=== PATIENT | male | born 1950 | race Caucasian/White ===

== ENCOUNTER 2018-07-18 01:57 | Inpatient (IN) | payer MEDICARE, OTHER ==
[~2018-07-18] VITALS: Ht 172.7 cm; Wt 75.3 kg
[2018-07-18] MEDS ORDERED: HALOPERIDOL LACTATE INJ 5 MG/ML VIAL IM ONE ×2 (02:30→03:00)
[2018-07-18] MEDS ORDERED: HALOPERIDOL LACTATE INJ 5 MG/ML VIAL ONE (02:31)
--- NOTE | 2018-07-18 02:39 | NUR ---
PT BIBRA FROM SNF FOR AGITATION; PT NOT ANSWERING QUESTIONS APPROPRIETLY, PT NAD NOTED, VSS, PT TO BED 6, PENDING MD CHAWLA
--- NOTE | 2018-07-18 02:40 | NUR ---
all ordered meds given
[2018-07-18 02:53] LABS: BASOPHILS # (AUTO) 0.1 /CMM (0.0-0.2); BASOPHILS % (AUTO) 0.6 % (0.0-2.0); EOSINOPHILS % (AUTO) 3.1 % (0.0-6.0); HEMATOCRIT 36 % (39-51); HEMOGLOBIN 12.7 g/dL (13.5-17.5); LYMPHOCYTES # (AUTO) 1.5 /CMM (0.8-4.8); LYMPHOCYTES % (AUTO) 17.8 % (20.0-44.0); MEAN CORPUSCULAR HGB CONC 35 g/dl (31.0-36.0); MEAN CORPUSCULAR VOLUME 95 fL (80-96); MONOCYTES # (AUTO) 0.6 /CMM (0.1-1.30); NEUTROPHILS # (AUTO) 5.9 /CMM (1.8-8.9); NEUTROPHILS % (AUTO) 71.5 % (43.0-81.0); PLATELET COUNT (AUTO) 219 /CMM (150-450); RED BLOOD CELL COUNT(AUTO) 3.83 MIL/uL (4.5-6.0); WHITE BLOOD COUNT (AUTO) 8.2 K/uL (4.3-11.0)
--- NOTE | 2018-07-18 03:00 | NUR ---
pt back in room from CT
[2018-07-18 03:05] LABS: ALANINE AMINOTRANSFERASE 31 U/L (12-78); ALBUMIN 3.8 g/dL (3.4-5.0); ALCOHOL, BLOOD < 3 mg/dL (0-0); ALKALINE PHOSPHATASE 74 U/L (46-116); ASPARTATE AMINOTRANSFERASE 17 U/L (15-37); BILIRUBIN,DIRECT 0.1 mg/dL (0.0-0.2); BILIRUBIN,TOTAL 0.3 mg/dL (0.2-1.0); CARBON DIOXIDE 26 mmol/L (21-32); CHLORIDE 104 mmol/L (98-107); GLUCOSE 136 mg/dL (74-106); POTASSIUM 3.8 mmol/L (3.5-5.1); SODIUM SERUM 141 mmol/L (136-145); TOTAL PROTEIN, SERUM 6.9 g/dL (6.4-8.2); UREA NITROGEN, BLOOD 11 mg/dL (7-18)
[2018-07-18 03:08] LABS: ACETAMINOPHEN 0 ug/ml (10-30); SALICYLATE 1.2 mg/dL (2.8-20.0)
[2018-07-18 03:14] LABS: THYROID STIMULATING HORMONE 1.853 uIU/mL (0.358-3.74)
--- NOTE | 2018-07-18 03:15 | NUR ---
BROOKLYN LUNA PAGED FOR CONSULT
--- NOTE | 2018-07-18 03:34 | NUR ---
found pt awake resting in bed. pt is a/ox2, can state name and knows he is in some kind of hospital. Pt talks off tangent. Pt does not answer all questions properly. No s/s of acute distress or sob noted. Waiting for psych eval.
--- NOTE | 2018-07-18 03:44 | NUR ---
urine collected by lab.
--- NOTE | 2018-07-18 03:50 | NUR ---
pt being seen by Art at bedside
[2018-07-18 04:05] LABS: APPEARANCE,URINE Clear (CLEAR); BILIRUBIN,URINE Negative (NEGATIVE); BLOOD, URINE Negative Ery/uL (NEGATIVE); COLOR,URINE Yellow (YELLOW); KETONES,URINE Negative (NEGATIVE); LEUKOCYTE ESTERASE ,URINE Negative (NEGATIVE); NITRITE, URINE Negative (NEGATIVE); PROTEIN,URINE Negative (NEGATIVE); UGLUCOSE Negative (NEGATIVE); UROBILINOGEN,URINE 0.2 EU/dL (0.2)
--- NOTE | 2018-07-18 04:37 | NUR ---
PT IS BEING PLACED ON A 5150 HOLD BY BROOKLYN LUNA LCSW.
--- NOTE | 2018-07-18 05:05 | NUR ---
ASSUMED CARE OF PT AT TIME OF TRANSPORT. PT BEING WHEELCHAIRED BY EMT TO INPATIENT STAY ON 5150 HOLD
--- NOTE | 2018-07-18 05:05 | NUR ---
REPORT GIVEN TO [facility]
--- NOTE | 2018-07-18 05:07 | NUR ---
NO LIST OF MEDICATION IN PT'S CHART. PT UNABLE TO RECAL HIS LIST OF MEDICATIONS. ALEIDA BESS MADE AWARE
--- NOTE | 2018-07-18 05:10 | NUR ---
pt taken to GPS unit via wheelchair. Pt is alert & awake. No s/s of acute distress or sob noted. Pt being safely transferred to GPS by staff member.
[2018-07-18] MEDS ORDERED: MAGNESIUM HYDROXIDE 30 ML UDC PO PRN (05:30)
[2018-07-18] MEDS ORDERED: ACETAMINOPHEN 325 MG TABLET PO PRN (05:30)
[2018-07-18] MEDS ORDERED: MAG HYDROX/AL HYDROX/SIMETH 30 ML UDC PO PRN (05:30)
--- NOTE | 2018-07-18 06:28 | NUR ---
ADMITTED THIS 68 YEARS OLD MALE FROM E. PATIENT WAS PLACED ON 5150 HOLD DUE TO INCREASED AGITATIONS, THROWING THE CHART AT THE STAFF. GRAVELY DISABLE, PATIENT IS ALERT, ORIENTED X1 AMBULATORY BODY ASSESSMENT IS DONE SKIN IS INTACT, ADVISEMENT IS EXPLAIN AND SERVE TO THE PATIENT WITH HOSPITAL POLICY, PATIENT UNABLE TO SIGN THE CONSENT PAPER DUE TO MEDICAL CONDITIONS PATIENT SPEECH IS PRESSURED, PATIENT DENIES ANY PAIN OR DISCOMFORT AT THIS TIME WILL CONTINUES TO MAKE ROUND EVERY 15 MINS FOR SAFETY AND FALL.
[2018-07-18 06:35] VITALS: BP 157/95
[2018-07-18 08:00] VITALS: BP 125/89
--- NOTE | 2018-07-18 11:22 | NUR ---
SW contacted Mauri, Size Worker at [facility] Address: [address] [place] [address] to confirm bed hold and readmission.
--- NOTE | 2018-07-18 11:30 | NUR ---
SW attempted to contact pts significant other Hortencia [phone] for collateral information and discharge planning. SW left voicemail for callback.
--- NOTE | 2018-07-18 12:17 | NUR ---
INITIAL DISCHARGE PLAN: Patient was BIB from [facility] Address: [address] [place] [address] . Per Mauri, electric organ assembler the facility is not accepting pt back due to his aggressive behavior. SW will explore other SNF placements. SW will help form a safe and proper discharge in collaboration with .
--- NOTE | 2018-07-18 12:17 | NUR ---
SW received a phone call from Mauri, Broom Builder at [facility] Address: [address] [place] [address] stating facility ois not taking pt back due to his aggressive behavior. Mauri stated would place pt at a sister facility.
[2018-07-18] MEDS: OLANZAPINE 5 MG/TAB.RAPDIS PO SCH ×2 (12:36→21:41)
[2018-07-18] MEDS: DIVALPROEX SODIUM 125 MG CAP.SPRINK PO SCH ×2 (12:37→21:41)
--- NOTE | 2018-07-18 13:52 | NUR ---
RN NOTE: DUE TO PATIENT'S INCREASED AGITATION, YELLING, CUSSING, SCREAMING AT STAFF, UNABLE TO RE-DIRECT PATIENT, ADMINISTERED ZYPREXA 5MG IM TO THE RIGHT DELTOID . NO FORCEFUL ADMINISTRATION. PATIENT WAS COOPERATIVE AND COMPLIANT. WILL CONTINUE TO MONITOR FOR BEHAVIOR AND SAFETY.
[2018-07-18] MEDS ORDERED: OLANZAPINE 10 MG VIAL IM ONE (14:00)
--- NOTE | 2018-07-18 15:22 | NUR ---
GROUP THERAPY: SW prompted pt to participate in group therapy, Pt was present but was unable to participant in group therapy as pt appeared manic with pressured speech. Pt is socially inappropriate and received an IM due to his aggressive/unpredictable behavior. Pt was not able to follow instructions or sit in a group setting without interruptions.
[2018-07-18 16:00] VITALS: BP 134/90
[2018-07-18 20:16] VITALS: BP 152/90
[2018-07-18] MEDS: ZOLPIDEM TARTRATE 5 MG TABLET PO PRN (23:02)
[2018-07-19 08:00] VITALS: BP 123/98
[2018-07-19] MEDS: DIVALPROEX SODIUM 125 MG CAP.SPRINK PO SCH ×2 (08:24→21:15)
[2018-07-19] MEDS: LORAZEPAM 0.5 MG TABLET PO PRN ×2 (08:24→16:07)
[2018-07-19] MEDS: OLANZAPINE 5 MG/TAB.RAPDIS PO SCH ×2 (08:24→21:15)
--- NOTE | 2018-07-19 14:34 | NUR ---
Group Note: SW encouraged the pt to participate in group therapy but the was unable to participate as he appeared manic with pressured speech. Pt is socially inappropriate and unpredictable. Pt was not able to follow instructions or sit in a group setting without interruptions.
[2018-07-19 16:00] VITALS: BP 128/94
[2018-07-19 20:42] VITALS: BP 135/91
[2018-07-19] MEDS: ZOLPIDEM TARTRATE 5 MG TABLET PO PRN (22:00)
[2018-07-20] MEDS: LORAZEPAM 0.5 MG TABLET PO PRN ×2 (06:22→16:43)
[2018-07-20 07:34] LABS: CHOLESTEROL 113 mg/dL (<200); HDL CHOLESTEROL 32 mg/dL (40-60); LDL 70 mg/dL (0-99); TRIGLYCERIDES 105 mg/dL (30-150)
[2018-07-20 08:00] VITALS: BP 134/87
[2018-07-20] MEDS: OLANZAPINE 5 MG/TAB.RAPDIS PO SCH ×2 (08:14→21:11)
[2018-07-20] MEDS: DIVALPROEX SODIUM 125 MG CAP.SPRINK PO SCH ×2 (08:15→21:11)
[2018-07-20] MEDS ORDERED: OLANZAPINE 10 MG VIAL IM STA (10:44)
[2018-07-20] MEDS ORDERED: LORAZEPAM INJ 2 MG/ML VIAL IM STA (10:44)
--- NOTE | 2018-07-20 11:00 | NUR ---
RN-CO: ATIVAN 1 MG PO IS INEFFECTIVE.
--- NOTE | 2018-07-20 11:08 | NUR ---
RN NOTES PATIENT AGITATED PACING AROUND THE HALLWAY, GETTING INTO OTHER PATIENT'S PERSONAL SPACE, SCREAMING AND YELLING AT STAFF AND OTHER PATIENT'S, BANGING THE MARIE, UNABLE TO RE-DIRECT PATIENT, KEPT ON REPEATING BEHAVIOR AFTER EACH REDIRECTIONS. ATIVAN 1MG AND ZYPREXA 10MG IM ORDERED STAT. ADMINISTERED ATIVAN 1MG AND ZYPREXA 10 MG IM, NO FORCEFUL ADMINISTRATION. PATIENT WAS COOPERATIVE AND COMPLIANT. WILL MONIOTR ACCORDINGLY.
--- NOTE | 2018-07-20 15:11 | NUR ---
Group Note: SW encouraged the pt to participate in group therapy but the was unable to participate as he appeared manic with pressured speech. Pt is socially inappropriate and unpredictable. Pt was not able to follow instructions or sit in a group setting without interruptions. Pt was removed from group.
[2018-07-20 16:00] VITALS: BP 129/79
[2018-07-20 20:00] VITALS: BP 125/85
[2018-07-21] MEDS: ZOLPIDEM TARTRATE 5 MG TABLET PO PRN ×2 (00:22→23:09)
[2018-07-21] MEDS: LORAZEPAM 0.5 MG TABLET PO PRN ×3 (03:25→20:09)
--- NOTE | 2018-07-21 03:27 | NUR ---
GPS RN NOTES: PT.NOTED VERY AGGRESSIVE PACING IN HALLWAY SCRAMING, YELLING, HYPERVERBAL, NOT FOLLOWING ANY REDIRECTIONS,ATIVAN 0.5 MG PO PRN GIVEN, WILL CONTINUE TO MONITOR.
[2018-07-21 08:00] VITALS: BP 127/90
[2018-07-21] MEDS: OLANZAPINE 5 MG/TAB.RAPDIS PO SCH ×2 (08:35→20:52)
[2018-07-21] MEDS: DIVALPROEX SODIUM 125 MG CAP.SPRINK PO SCH ×2 (08:35→20:52)
--- NOTE | 2018-07-21 13:45 | NUR ---
HALEY received a call from pts niece Mirian [phone] who was requested updated information. Mirian stated that she had been looking for pt as she was not notified from the previous hospital that pt had been released. HALEY explained that her contact information was not in pts admission packet and she stated that she was aware. Mirian informed SW that she is okay with pt being discharged to a SNF but wants to know why pts behavior changed so drastically. HALEY explained that pts last hospitalization at [facility] was 3 years ago and psychiatrist did not have any recent information on pt to determine why he has declined. HALEY explained that psychiatrist makes his assessments and treatment based on how pt is presenting in the hospital. HALEY informed nikirstin that she would contact her with any updates, niece understood and agreed.
--- NOTE | 2018-07-21 14:04 | NUR ---
Pt. is anxious, irritable, anxious and making bizzare bevior in the hallway. Pt. needs constant redirection and prn ativan po given.
[2018-07-21 16:00] VITALS: BP 127/77
[2018-07-21] MEDS ORDERED: LORAZEPAM 0.5 MG TABLET PO PRN (17:30)
[2018-07-21 20:00] VITALS: BP 149/91
[2018-07-22 08:00] VITALS: BP 152/90
[2018-07-22] MEDS: OLANZAPINE 5 MG/TAB.RAPDIS PO SCH ×2 (08:16→21:19)
[2018-07-22] MEDS: DIVALPROEX SODIUM 125 MG CAP.SPRINK PO SCH ×2 (08:16→21:19)
[2018-07-22] MEDS: LORAZEPAM 0.5 MG TABLET PO PRN ×2 (09:44→19:13)
--- NOTE | 2018-07-22 09:46 | NUR ---
GPS RN NOTE: PT AGITATED ATIVAN 1 MG PO PRN GIVEN PER ORDER WILL CONTINUE MONITORING.
--- NOTE | 2018-07-22 14:35 | NUR ---
GPS RN NOTE: SKIN ASSESSMENT DONE NOTED SLIGHT DISCOLORATION PICTURE PLACED IN THE CHART.CN AWARE.
[2018-07-22 16:00] VITALS: BP 141/99
[2018-07-22 20:00] VITALS: BP 148/89
[2018-07-22 20:25] VITALS: BP 148/89
[2018-07-22] MEDS: ZOLPIDEM TARTRATE 5 MG TABLET PO PRN (23:32)
[2018-07-23] MEDS: LORAZEPAM 0.5 MG TABLET PO PRN ×2 (04:37→12:13)
[2018-07-23 08:00] VITALS: BP 136/84
[2018-07-23] MEDS: DIVALPROEX SODIUM 125 MG CAP.SPRINK PO SCH ×2 (08:33→21:22)
[2018-07-23] MEDS: OLANZAPINE 5 MG/TAB.RAPDIS PO SCH ×2 (08:34→21:23)
--- NOTE | 2018-07-23 12:13 | NUR ---
RN NOTES ADMINISTER ATIVAN 1 MG PO PRN FOR ANXIETY, PARANOIA, REFUSED V/S TO BE TAKEN, CONTINUED MONITORING.
[2018-07-23 16:00] VITALS: BP 140/92
[2018-07-23 20:18] VITALS: BP 161/100
[2018-07-24] MEDS: ZOLPIDEM TARTRATE 5 MG TABLET PO PRN (00:22)
[2018-07-24 08:00] VITALS: BP 129/76
[2018-07-24] MEDS: OLANZAPINE 5 MG/TAB.RAPDIS PO SCH ×3 (08:03→21:33)
[2018-07-24] MEDS: DIVALPROEX SODIUM 125 MG CAP.SPRINK PO SCH ×2 (08:03→21:32)
--- NOTE | 2018-07-24 09:40 | NUR ---
SW received a call from Mauri, Checkman at [facility] Address: [address] [place] [address] stating facility will take pt back.
[2018-07-24] MEDS: clonazePAM 0.5 MG TABLET PO SCH ×2 (12:19→17:02)
[2018-07-24 16:00] VITALS: BP 120/97
[2018-07-24 20:13] VITALS: BP 144/90
[2018-07-25 08:00] VITALS: BP 131/90
[2018-07-25] MEDS: DIVALPROEX SODIUM 125 MG CAP.SPRINK PO SCH ×2 (08:15→20:44)
[2018-07-25] MEDS: clonazePAM 0.5 MG TABLET PO SCH ×3 (08:15→16:13)
[2018-07-25] MEDS: OLANZAPINE 5 MG/TAB.RAPDIS PO SCH ×3 (08:15→20:44)
[2018-07-25 16:00] VITALS: BP 139/80
--- NOTE | 2018-07-25 16:26 | NUR ---
GROUP NOTE: Pt was present in group and sat throughout group but was unable to participate due to cognitive impairment. Pt was having a side conversation and was mentally preoccupied and was also focused on making sure other patients were quiet. Pt is unable to follow directions in a group setting and also engage in an appropriate conversation. Pt was disruptive.
[2018-07-25 20:00] VITALS: BP 128/92
[2018-07-25] MEDS: LORAZEPAM 0.5 MG TABLET PO PRN (20:44)
[2018-07-26 08:00] VITALS: BP 121/83
[2018-07-26] MEDS: OLANZAPINE 5 MG/TAB.RAPDIS PO SCH ×3 (08:54→21:34)
[2018-07-26] MEDS: clonazePAM 0.5 MG TABLET PO SCH ×3 (08:54→16:10)
[2018-07-26] MEDS: DIVALPROEX SODIUM 125 MG CAP.SPRINK PO SCH ×4 (08:54→21:33)
[2018-07-26] MEDS: LORAZEPAM 0.5 MG TABLET PO PRN ×2 (10:17→18:47)
--- NOTE | 2018-07-26 10:17 | NUR ---
RN NOTES ADMINISTERED ATIVAN 1 MG PO PRN FOR ANXIETY, YELLING, LOUD, HARD TO FOLLOW DIRECTION, UNPREDICTABLE, PARANOID BEHAVIOR, V/S TAKEN BP-121/83, P-98, SAFETY PRECAUTION MAINTAINED ALL THE TIME.
--- NOTE | 2018-07-26 15:59 | NUR ---
GROUP NOTE: Pt was present in group and sat throughout group but was unable to participate due to cognitive impairment. Pt was having a side conversation and was mentally preoccupied.
[2018-07-26 16:00] VITALS: BP 135/81
--- NOTE | 2018-07-26 18:47 | NUR ---
RN NOTES ADMINISTERED ATIVAN 1 MG PO PRN FOR ANXIETY, PARANOIA, CONTINUED MONITORING.
--- NOTE | 2018-07-26 19:30 | NUR ---
GPS RN NOTE, RECEIVED PATIENT AWAKE AND IN ROOM NO S/S OR COMPLAINTS OF PAIN AT THIS TIME. PATIENT IS DISPLAYING NO S/S OF APPARENT DISTRESS AT THIS TIME. PATIENT BREATHING IS UNLABORED WITH EQUAL RISE AND FALL OF THE CHEST. PATIENT IS ALERT AND ORIENTED X 1 ON ROOM AIR WITH A SPO2 OF 95%. PATIENT IS CONFUSED, PARANOID, DISORGANIZED, ANXIOUS, UNCOOPERATIVE, HYPERVERBAL, AND NEEDS REORIENTATION. PATIENT DENIES SUICIDE AND HOMICIDAL IDEATIONS AT THIS TIME. PATIENT ASSISTED WITH TURNING AND REPOSITIONING Q2HR AND PRN FOR COMFORT AND CIRCULATION. PATIENT HAS NO NEEDS AT THIS TIME. PATIENT EDUCATED ON THE USE OF THE CALL MITCHELL. PATIENT BED SIDE RAILS ARE UP X 2 FOR SAFETY, BED IS LOCKED AND LOW. WILL CONTINUE TO MONITOR AND MAINTAIN SAFETY Q15 MIN WITH THE HELP OF STAFF.
[2018-07-26 20:16] VITALS: BP 115/73
[2018-07-27 08:00] VITALS: BP 129/95
[2018-07-27] MEDS: OLANZAPINE 5 MG/TAB.RAPDIS PO SCH ×3 (08:38→21:59)
[2018-07-27] MEDS: clonazePAM 0.5 MG TABLET PO SCH ×3 (08:38→16:45)
[2018-07-27] MEDS: DIVALPROEX SODIUM 125 MG CAP.SPRINK PO SCH ×4 (08:38→21:59)
[2018-07-27] MEDS: hydrOXYzine PAMOATE 25 MG CAPSULE PO PRN (14:40)
--- NOTE | 2018-07-27 15:30 | NUR ---
GROUP NOTE: Pt was present in group and sat in group but was unable to participate due to psychosis. Pt was having a side conversation and was mentally preoccupied. Pt was being disruptive and agitating other pts in group. SW had to ask APPLICATION DEVELOPMENT TEAM LEAD to remove pt from group.
[2018-07-27 16:00] VITALS: BP 134/99
--- NOTE | 2018-07-27 18:09 | NUR ---
RN GPS NOTES PT AWAKE, ALERT TO SELF, CONFUSED, MUMBLES TO HIMSELF, REDIRECTED NEEDED, ASSISTED WITH DINNER, WITH GOOD PO INTAKE, PM MEDS GIVEN ORDERED, ASSISTED TO HIS ROOM, SAFETY PRECAUTIONS OBSERVED, ROUTINE ROUNDING DONE.
[2018-07-27 20:00] VITALS: BP 133/82
[2018-07-28 08:30] VITALS: BP 140/94
[2018-07-28] MEDS: OLANZAPINE 5 MG/TAB.RAPDIS PO SCH (08:45)
[2018-07-28] MEDS: DIVALPROEX SODIUM 125 MG CAP.SPRINK PO SCH ×4 (08:46→20:02)
[2018-07-28] MEDS: clonazePAM 0.5 MG TABLET PO SCH ×3 (08:46→16:55)
[2018-07-28 16:00] VITALS: BP 142/67
--- NOTE | 2018-07-28 16:00 | NUR ---
Group note: Pt was present in group and sat throughout group but was unable to participate due to cognitive impairment. Pt was having a side conversation and was mentally preoccupied.
[2018-07-28] MEDS: HALOPERIDOL 5 MG TABLET PO SCH ×2 (16:55→21:59)
[2018-07-28] MEDS: BENZTROPINE MESYLATE (1 MG) 1 MG TABLET PO SCH (16:56)
[2018-07-28 20:00] VITALS: BP 127/79
[2018-07-28] MEDS: ZOLPIDEM TARTRATE 5 MG TABLET PO PRN (21:57)
[2018-07-29 08:00] VITALS: BP 133/67
[2018-07-29] MEDS: HALOPERIDOL 5 MG TABLET PO SCH ×3 (08:34→22:00)
[2018-07-29] MEDS: clonazePAM 0.5 MG TABLET PO SCH ×3 (08:34→17:02)
[2018-07-29] MEDS: BENZTROPINE MESYLATE (1 MG) 1 MG TABLET PO SCH ×2 (08:34→17:02)
[2018-07-29] MEDS: DIVALPROEX SODIUM 125 MG CAP.SPRINK PO SCH ×4 (08:34→21:04)
[2018-07-29 16:00] VITALS: BP 134/74
[2018-07-29 20:00] VITALS: BP 138/85
[2018-07-30 08:00] VITALS: BP 121/81
[2018-07-30] MEDS: HALOPERIDOL 5 MG TABLET PO SCH ×4 (08:28→21:07)
[2018-07-30] MEDS: clonazePAM 0.5 MG TABLET PO SCH ×3 (08:28→17:17)
[2018-07-30] MEDS: DIVALPROEX SODIUM 125 MG CAP.SPRINK PO SCH ×4 (08:28→21:07)
[2018-07-30] MEDS: BENZTROPINE MESYLATE (1 MG) 1 MG TABLET PO SCH ×2 (08:28→17:17)
[2018-07-30 16:00] VITALS: BP 155/89
[2018-07-30 21:35] VITALS: BP 148/92
[2018-07-31] MEDS: hydrOXYzine PAMOATE 25 MG CAPSULE PO PRN ×2 (01:11→10:24)
--- NOTE | 2018-07-31 01:22 | NUR ---
Pt anxious. Least restrictive measures ineffective. Vistaril 25 mg 1 cap/po given as ordered. Will continue to monitor.
--- NOTE | 2018-07-31 02:26 | NUR ---
Vistaril effective. Pt asleep in bed easy to arouse. Will continue to monitor.
--- NOTE | 2018-07-31 04:26 | NUR ---
GPS RN NOTE, PATIENT HAS A PRODUCTIVE COUGH WITH MODERATE AMOUNT LIGHT GREEN SPUTUM. PATIENT IS WHEEZING THOUGH OUT LUNG ANTHONY, WITH A SP02 OF 94 %, AND IS REQUESTING A BREATHING TREATMENT. PAGED [facility] AND INFORMED MARYANNE COLLADO OF MY FINDINGS. MARYANNE COLLADO ORDERED ALBUTEROL 2.5MG / 3ML UD VIA NEB Q6HR PRN AND A CHEST X-RAY IN A.M. ROUTINE. ALL ORDERS NOTED AND CARRIED OUT WILL CONTINUE TO MONITOR THIS PATIENT.
[2018-07-31] MEDS: ALBUTEROL FS 2.5 MG/3 ML VIAL.NEB NEB PRN (05:00)
[2018-07-31] MEDS: HALOPERIDOL 5 MG TABLET PO SCH ×4 (08:17→21:24)
[2018-07-31] MEDS: clonazePAM 0.5 MG TABLET PO SCH ×3 (08:17→17:01)
[2018-07-31] MEDS: BENZTROPINE MESYLATE (1 MG) 1 MG TABLET PO SCH ×2 (08:17→17:01)
[2018-07-31] MEDS: DIVALPROEX SODIUM 125 MG CAP.SPRINK PO SCH ×4 (08:17→21:24)
[2018-07-31 09:16] VITALS: BP 144/80
--- NOTE | 2018-07-31 09:34 | NUR ---
GPS Nurse's Note: A/O x3 speech is slurred denies SI,HI,AH. or VH medication compliant and cooperative with staff. Gait is steady. Denies of any distress.
[2018-07-31 16:00] VITALS: BP 131/67
[2018-07-31 20:50] VITALS: BP 106/90
[2018-07-31 22:30] VITALS: BP 135/94
--- NOTE | 2018-07-31 23:30 | NUR ---
GPS-RN RELAYED CHEST X-RAY RESULT TO LEATHER GOODS ASSEMBLER CONSTANTINO WITH NEW ORDER OF LEVOFLOXACIN. STARTED FIRST DOSE OF ATB THERAPY WITH NO ADVERSE REACTIONS NOTED. WILL CONTINUE TO MONITOR.
[2018-07-31] MEDS: LEVOFLOXACIN (750 MG) 750 MG TABLET PO SCH (23:38)
[2018-08-01] MEDS: ZOLPIDEM TARTRATE 5 MG TABLET PO PRN (01:01)
[2018-08-01 08:00] VITALS: BP 114/68
[2018-08-01] MEDS: BENZTROPINE MESYLATE (1 MG) 1 MG TABLET PO SCH ×2 (08:28→17:07)
[2018-08-01] MEDS: HALOPERIDOL 5 MG TABLET PO SCH ×4 (08:28→21:51)
[2018-08-01] MEDS: DIVALPROEX SODIUM 125 MG CAP.SPRINK PO SCH (08:28)
[2018-08-01] MEDS: clonazePAM 0.5 MG TABLET PO SCH ×3 (08:28→17:07)
--- NOTE | 2018-08-01 08:44 | NUR ---
WOUND CARE CONSULT: PT PRESENTS WITH LEFT KNEE HEALING SCRATCH. RECOMMENDATIONS MADE FOR WOUND CARE AND SKIN PROTECTION. DISCUSSED WITH NURSING STAFF. PT IS AMBULATORY AND CONTINENT AT THIS TIME. WILL SEE PRN.
[2018-08-01 16:24] VITALS: BP 138/86
[2018-08-01] MEDS: CARBAMAZEPINE 200 MG TABLET PO SCH (17:07)
[2018-08-01 20:00] VITALS: BP 134/88
[2018-08-01] MEDS: LEVOFLOXACIN (750 MG) 750 MG TABLET PO SCH (21:51)
--- NOTE | 2018-08-01 22:20 | NUR ---
GPS RN NOTE: 2144: FOUND PATIENT SITTING ON THE FLOOR OF THE RESTROOM, AWAKE, CONFUSED, TALKING TO SELF, FLOOR WAS WET WITH URINE, PATIENT IS UPSET, HYPERVERBAL, NO FACIAL GRIMACING, PATIENT ALSO UNABLE TO STAND UP. WITH AN ASSISTANCE OF 2 PERSON AND CN, PATIENT ASSISTED TO THE CHAIR. RANGE OF MOTION ASSESSMENT DONE. NO S/S OF PAIN AND DISCOMFORT. NO BRUISES OR NEW SKIN BREAKDOWN NOTED AT THIS TIME. HEAD TO TOE ASSESSMENT DONE. NEURO CHECK DONE. PUPIL EQUAL, REACTIVE TO LIGHT AND ACCOMMODATION. V/S CHECK PF=829/85 P=104 R=20 T=97.8F O2 SAT 93 WITH MILD CONGESTION. NOTIFIED RT TO ADMINISTER THE ORDERED BREATHING TX. 2199: NOTIFIED DR. GOLDMAN WITH ORDER TO CONTINUE TO MONITOR AND PT IN AM, CORRUGATOR NOTIFIED 2219: PATIENT CALM, COOPERATIVE, PER PATIENT HE IS FEELING BETTER, PATIENT RAISED HIS BOTH ARMS, MOVE BOTH HIS LEGS, DENIES PAIN AND DISCOMFORT. WILL CONTINUE TO MONITOR
[2018-08-01] MEDS: ALBUTEROL FS 2.5 MG/3 ML VIAL.NEB NEB PRN (22:42)
--- NOTE | 2018-08-02 06:50 | NUR ---
GPS RN NOTE: LEFT MESSAGE TO OSCAR (SELENE) REGARDING THE INCIDENT
[2018-08-02 08:00] VITALS: BP 120/77
[2018-08-02] MEDS: clonazePAM 0.5 MG TABLET PO SCH ×3 (09:26→17:12)
[2018-08-02] MEDS: HALOPERIDOL 5 MG TABLET PO SCH ×4 (09:26→21:04)
[2018-08-02] MEDS: CARBAMAZEPINE 200 MG TABLET PO SCH ×2 (09:26→17:12)
[2018-08-02] MEDS: BENZTROPINE MESYLATE (1 MG) 1 MG TABLET PO SCH ×2 (09:26→17:12)
--- NOTE | 2018-08-02 15:19 | NUR ---
GROUP NOTE: Pt was present in group and sat in group but was unable to participate due to psychosis. Pt was having a side conversation and was mentally preoccupied.
[2018-08-02] MEDS: ALBUTEROL FS 2.5 MG/3 ML VIAL.NEB NEB PRN (15:55)
[2018-08-02 16:00] VITALS: BP 113/66
--- NOTE | 2018-08-02 17:54 | NUR ---
GPS/RN-NOTES PATIENT IN DAY ROOM EATING DINNER ,GUARDED,NOTED WITH EASILY ANGRY BEHAVIOR, NO ACUTE DISTRESS NOTED. ALL NEEDS ATTENDED AND ANTICIPATED. ENDORSED TO THE CHARGE NURSE.
[2018-08-02 20:08] VITALS: BP 115/71
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
[2018-08-02] MEDS: LEVOFLOXACIN (750 MG) 750 MG TABLET PO SCH (21:04)
[2018-08-03] MEDS: HALOPERIDOL 5 MG TABLET PO SCH ×2 (08:15→12:04)
[2018-08-03] MEDS: clonazePAM 0.5 MG TABLET PO SCH ×2 (08:15→12:04)
[2018-08-03] MEDS: BENZTROPINE MESYLATE (1 MG) 1 MG TABLET PO SCH (08:15)
[2018-08-03] MEDS: CARBAMAZEPINE 200 MG TABLET PO SCH (08:15)
[2018-08-03 08:17] VITALS: BP 123/71
[2018-08-03] MEDS: ALBUTEROL FS 2.5 MG/3 ML VIAL.NEB NEB PRN (08:36)
--- NOTE | 2018-08-03 10:56 | NUR ---
DISCHARGE NOTE: Pt will be discharged at 2:00pm via AMBULN[facility] to [facility] Address: [address] [place] [address] . Pts faina Vela [phone] has been notified and agrees with discharge plan. Pts mood is irritable with congruent affect. Pt denied suicidal/homicidal ideation and denied visual/auditory hallucinations. Pt will be under the care of Psychiatrist: Dr. Harris [address] [facility] [address] [place] [address] [phone] and Technical Training Manager: Dr Hancock Address: [address] [place] [phone]. The multidisciplinary exit care form was done, printed, signed, and given to the patient.
--- NOTE | 2018-08-03 13:44 | NUR ---
GPS LIGHTNING PROTECTION INSTALLER NOTE: PT DISCHARGE TO [facility] VIA AMBULANCE,PT IN STABLE CONDITION NO S/S DISTRESS NOTED ,VSS, AMBULATORY , A/O X2, PT COOPERATIVE COMPLIANT WITH MEDICATIONS, NO AGITATION, NO AGGRESSIVE BEHAVIOR. EXIT CARE DONE PRINTED PT REFUSED TO SIGN DC PAPERS GIVEN TO PT. ALL BELONGINGS RETURNED TO PT REPORT GIVEN TO RN IN THE FACILITY. SKIN ASSESSMENT DONE PICTURE IN THE CHART.
== END 2018-08-03 13:45 | DRG 885 ==
LOC: ER 01:59 → GPS 04:19 → EDBD 04:19 → GPS 07-26 21:12
PROVIDERS: ADMIT Psychiatry & Neurology Psychiatry; ATTEND Nurse Practitioner Acute Care
DX: F25.0 Schizoaffective disorder, bipolar type (principal); I10 Essential (primary) hypertension; D64.9 Anemia, unspecified; R73.9 Hyperglycemia, unspecified; Z73.6 Limitation of activities due to disability; F29 Unspecified psychosis not due to a substance or known physiological condition
CPT/HCPCS: 36415; 70450-TC; 71045-TC; 80048-TC; 80061-TC; 80076-TC; 80156-TC; 80164-TC; 80305; 81000-TC; 82962-TC; 84443-TC; 85025-TC; 87081-TC; 97116-TC; 97530-TC; G0480; J1630; J2060; J3490; Q0177